=== PATIENT | female | born 1985 | race Caucasian/White ===

== ENCOUNTER 2016-12-09 09:33 | Emergency (ER) | payer MEDICAID, OTHER ==
[2016-12-09 11:07] LABS: Basophils % (Auto) 0.6 % (0.0-1.8); Eosinophils % (Auto) 0.9 % (0.0-4.3); Hematocrit 39.3 % (30.3-42.9); Hemoglobin 13.2 gm/dl (10.1-14.3); Mean Corpuscular HGB Conc 34 % (30-34); Mean Corpuscular Hemoglobin 29 pg (28-32); Mean Corpuscular Volume 86 fl (79-97); Platelet Count 225 K/mm3 (140-440); Red Blood Count 4.55 M/mm3 (3.65-5.03); Red Cell Distribution Width 14.5 % (13.2-15.2); White Blood Count 9.8 K/mm3 (4.5-11.0)
--- NOTE | 2016-12-09 12:34 | Ultrasound Report ---
ULTRASOUND OB LESS THAN 14 WEEKS ULTRASOUND OB TRANSVAGINAL HISTORY: Vaginal bleeding during , beta hCG level is 372. TECHNIQUE: Transabdominal and transvaginal ultrasound with color and spectral doppler interrogation. No comparison. The uterus measures 8.4 x 4.6 x 6.1 cm. No uterine mass is detected. The endometrial stripe measures 6.2 mm. No intrauterine is visualized. No heart tones detected. The right ovary measures 2.6 x 1.3 x 1.5 cm. No focal abnormality. The left ovary measures 3.3 x 1.8 x 2.3 cm. No focal abnormality. Small free pelvic fluid is noted in the cul-de-sac which is probably physiologic. IMPRESSION: No intrauterine is visualized at this time. This could represent a normal very early , spontaneous or possibly a nonvisualized ectopic . Close interval followup is recommended.
[2016-12-09 15:20] LABS: Bilirubin,Urine NEG (Negative); Blood,Urine MOD (Negative); Ketones,Urine TR mg/dL (Negative); Leukocyte Esterase,Urine TR (Negative); Mucus,Urine FEW /HPF; Nitrite,Urine NEG (Negative); Protein,Urine <15 mg/dL mg/dL (Negative); Urobilinogen,Urine < 2.0 mg/dL (<2.0)
--- NOTE | 2016-12-09 15:32 | Emergency Department Report ---
ED HPI - General Chief complaint: Vaginal Bleeding Stated complaint: 5 WEEKS , VAGINAL BLEEDING AND CRAMPING Time Seen by Provider: 12/09/16 15:29 Source: patient, RN notes reviewed Mode of arrival: Ambulatory Limitations: Language Barrier (this provider is conversational in Telugu) - History of Present Illness Initial comments: This is a 31-year-old female who is previously unknown to this provider. She is 2, para 1. Last menstruation is October 27. Does not have a local taxicab driver. Presents to the ER with lower abdominal cramping, vaginal bleeding. Symptoms started this morning. They are constant. They do not have exacerbating or relieving factors. Denies irritative and obstructive urinary symptoms, no care as of now. No other complaints. MD Complaint: abdominal pain, vaginal bleeding -: Gradual Location: pelvis Severity: mild Quality: cramping Consistency: intermittent Improves with: none Worsens with: none Associated symptoms: vaginal bleeding, abdominal pain. denies: nausea/vomiting , vaginal discharge, dysuria, headache, vision changes, malaise, dysparuenia, shortness of breath, syncope, weakness Vaginal bleeding: light :: Yes Pre- care: none - Related Data Previous Rx's Medication Instructions Recorded Last Taken Type HYDROcodone/APAP 5-325 [[place] 1 each PO Q6H PRN #30 tablet 06/12/14 Unknown Rx 5-325 mg TAB] Ibuprofen [Motrin 600 MG tab] 600 mg PO Q6H PRN #30 tablet 06/12/14 Unknown Rx Vit-Fe Fumar-FA [ 1 each PO QDAY #30 tablet 06/12/14 Unknown Rx Vitamin] Allergies Allergy/AdvReac Type Severity Reaction Status Date / Time No Known Allergies Allergy Verified 06/11/14 10:13 ED Review of Systems ROS: Stated complaint: 5 WEEKS , VAGINAL BLEEDING AND CRAMPING Other details as noted in HPI Constitutional: denies: fever Eyes: denies: eye discharge ENT: denies: epistaxis Respiratory: denies: cough Cardiovascular: denies: chest pain Gastrointestinal: denies: nausea, vomiting Genitourinary: abnormal menses. denies: dysuria Musculoskeletal: back pain Skin: denies: lesions Neurological: weakness Psychiatric: anxiety ED Past Medical Hx - Past Medical History Previous Medical History?: Yes Hx Hypertension: No Hx Congestive Heart Failure: No Hx Diabetes: No Hx Deep Vein Thrombosis: No Hx Renal Disease: No Hx Sickle Cell Disease: No Hx Seizures: No Hx Asthma: No Hx COPD: No Hx HIV: No Additional medical history: vaginal delivery x 1 - Surgical History Past Surgical History?: No - Social History Smoking Status: Never Smoker Substance Use Type: Prescribed - Medications Home Medications: Home Medications Medication Instructions Recorded Confirmed Last Taken Type HYDROcodone/APAP 5-325 [[place] 1 each PO Q6H PRN #30 tablet 06/12/14 Unknown Rx 5-325 mg TAB] Ibuprofen [Motrin 600 MG tab] 600 mg PO Q6H PRN #30 tablet 06/12/14 Unknown Rx Vit-Fe Fumar-FA [ 1 each PO QDAY #30 tablet 06/12/14 Unknown Rx Vitamin] ED Physical Exam - General Limitations: Language Barrier General appearance: alert, in no apparent distress - Head Head exam: Present: atraumatic, normocephalic - Eye Eye exam: Present: normal appearance, EOMI. Absent: nystagmus - ENT ENT exam: Present: normal exam, normal orophraynx, mucous membranes moist, normal external ear exam - Neck Neck exam: Present: normal inspection, full ROM. Absent: tenderness, meningismus - Respiratory Respiratory exam: Present: normal lung sounds bilaterally. Absent: respiratory distress, wheezes, rales, rhonchi, stridor, chest wall tenderness, accessory muscle use, decreased breath sounds, prolonged expiratory - Cardiovascular Cardiovascular Exam: Present: regular rate, normal rhythm, normal heart sounds. Absent: bradycardia, tachycardia, irregular rhythm, systolic murmur, diastolic murmur, rubs, gallop - GI/Abdominal GI/Abdominal exam: Present: soft, normal bowel sounds. Absent: distended, tenderness, guarding, rebound, rigid - External exam: Present: normal external exam Speculum exam: Present: normal speculum exam, vaginal bleeding Bi-manual exam: Present: normal bi-manual exam, other (escorted by JARROD Perez). Absent: cervical motion tendernes, adnexal tenderness, adnexal mass, uterine enlargement, uterine tenderness - Extremities Exam Extremities exam: Present: normal inspection, full ROM, normal capillary refill. Absent: tenderness, calf tenderness - Back Exam Back exam: Present: normal inspection, full ROM. Absent: tenderness, CVA tenderness (R), CVA tenderness (L), muscle spasm, paraspinal tenderness, vertebral tenderness - Neurological Exam Neurological exam: Present: alert, oriented X3, normal gait, other (Extraocular movements intact. Tongue midline. No facial droop. Facial sensation intact to light touch in the V1, V2, V3 distribution bilaterally. 5 and 5 strength in 4 extremities.. Sensation is intact to light touch in 4 extremities.). Absent : motor sensory deficit - Psychiatric Psychiatric exam: Present: anxious - Skin Skin exam: Present: warm, dry, intact, normal color. Absent: rash ED Course Vital Signs 12/09/16 12/09/16 12/09/16 10:13 10:20 15:31 Temperature 98.9 F 98.2 F Pulse Rate 70 73 61 Respiratory 18 16 Rate Blood Pressure 111/56 111/56 106/54 O2 Sat by Pulse 100 100 100 Oximetry ED Medical Decision Making - Lab Data Result diagrams: 12/09/16 10:20 Vital Signs 12/09/16 10:13 Temperature 98.9 F Pulse Rate 70 Respiratory 18 Rate Blood Pressure 111/56 O2 Sat by Pulse 100 Oximetry Lab Results 12/09/16 12/09/16 12/09/16 Range/Units 10:20 10:20 10:20 WBC 9.8 (4.5-11.0) K/mm3 RBC 4.55 (3.65-5.03) M/mm3 Hgb 13.2 (10.1-14.3) gm/dl Hct 39.3 (30.3-42.9) % MCV 86 (79-97) fl MCH 29 (28-32) pg MCHC 34 (30-34) % RDW 14.5 (13.2-15.2) % Plt Count 225 (140-440) K/mm3 Lymph % (Auto) 18.2 (13.4-35.0) % [place] % (Auto) 8.2 H (0.0-7.3) % Eos % (Auto) 0.9 (0.0-4.3) % Baso % (Auto) 0.6 (0.0-1.8) % Lymph # 1.8 (1.2-5.4) K/mm3 [place] # 0.8 (0.0-0.8) K/mm3 Eos # 0.1 (0.0-0.4) K/mm3 Baso # 0.1 (0.0-0.1) K/mm3 Seg Neutrophils % 72.1 H (40.0-70.0) % Seg Neutrophils # 7.1 (1.8-7.7) K/mm3 HCG, Quant 371.8 H (0-4) mIU/mL Urine Color (Yellow) Urine Turbidity (Clear) Urine pH (5.0-7.0) Ur Specific [place] (1.003-1.030) Urine Protein (Negative) mg/dL Urine Glucose (UA) (Negative) mg/dL Urine Ketones (Negative) mg/dL Urine Blood (Negative) Urine Nitrite (Negative) Urine Bilirubin (Negative) Urine Urobilinogen (<2.0) mg/dL Ur Leukocyte Esterase (Negative) Urine WBC (Auto) (0.0-6.0) /HPF Urine RBC (Auto) (0.0-6.0) /HPF U Epithel Cells (Auto) (0-13.0) /HPF Urine Mucus /HPF Blood Type A POSITIVE Antibody Screen TNR CARIDAD Antibody Screen Negative 12/09/16 Range/Units Unknown WBC (4.5-11.0) K/mm3 RBC (3.65-5.03) M/mm3 Hgb (10.1-14.3) gm/dl Hct (30.3-42.9) % MCV (79-97) fl MCH (28-32) pg MCHC (30-34) % RDW (13.2-15.2) % Plt Count (140-440) K/mm3 Lymph % (Auto) (13.4-35.0) % [place] % (Auto) (0.0-7.3) % Eos % (Auto) (0.0-4.3) % Baso % (Auto) (0.0-1.8) % Lymph # (1.2-5.4) K/mm3 [place] # (0.0-0.8) K/mm3 Eos # (0.0-0.4) K/mm3 Baso # (0.0-0.1) K/mm3 Seg Neutrophils % (40.0-70.0) % Seg Neutrophils # (1.8-7.7) K/mm3 HCG, Quant (0-4) mIU/mL Urine Color Yellow (Yellow) Urine Turbidity Clear (Clear) Urine pH 7.0 (5.0-7.0) Ur Specific [place] 1.010 (1.003-1.030) Urine Protein <15 mg/dl (Negative) mg/dL Urine Glucose (UA) Neg (Negative) mg/dL Urine Ketones Tr (Negative) mg/dL Urine Blood Mod (Negative) Urine Nitrite Neg (Negative) Urine Bilirubin Neg (Negative) Urine Urobilinogen < 2.0 (<2.0) mg/dL Ur Leukocyte Esterase Tr (Negative) Urine WBC (Auto) 2.0 (0.0-6.0) /HPF Urine RBC (Auto) 53.0 (0.0-6.0) /HPF U Epithel Cells (Auto) < 1.0 (0-13.0) /HPF Urine Mucus Few /HPF Blood Type Antibody Screen CARIDAD Antibody Screen - Radiology Data Radiology results: report reviewed, image reviewed Obstetrics ultrasound Demonstrates no acute uterine . May represent early , spontaneous or nonvisualized ectopic . - Medical Decision Making Differential diagnosis: Miscarriage, ectopic , early intrauterine Assessment and plan: 31-year-old female with one day of lower abdominal cramping and vaginal bleeding. The patient is afebrile, with reassuring vital signs, quantitative hCGs and 300s, has a benign gynecologic exam, has a benign abdominal examination. Extensive discussion had with patient and family. Patient instructed to return in 48 hours for repeat physical exam and blood tests. Understands to rest, avoid heavy lifting, avoid strenuous physical activity, and to not engage in sexual intimacy. Extensive discussions were relayed to the patient in czech and jamaican. Critical care attestation.: If time is entered above; I have spent that time in minutes in the direct care of this critically ill patient, excluding procedure time. ED Disposition Clinical Impression: Miscarriage Disposition: DC-01 TO HOME OR SELFCARE Is pt being admited?: No Does the pt Need Aspirin: No Condition: Stable Instructions: Threatened Miscarriage (ED) Additional Instructions: Rest and avoid heavy lifting. Avoid strenuous physical activity. Do not engage in sex or heavy lifting. Return to the ER in 2 days for repeat quantitative hCG/ blood test. Right now, based on her history, ultrasound, and laboratory studies, possibilities include early with a possible threatened miscarriage, demise/termination , or ectopic , which is considered outside the uterus. Right now, it is too early to tell which of these possibilities is the definitive diagnosis. Therefore, it is very important to return in 2 days for repeat blood tests and physical examination. Not following up as recommended may result in an undiagnosed ectopic , which can cause , disability, paralysis, loss of quality of life. Return to the ER right away with new pain, worsened pain, migration of pain, bleeding more than 2 pads soaked per hour, lightheadedness, loss of consciousness and passing out. The miscarriage is defined when a terminates or dies , typically within the first trimester. Descansar y evitar el levantamiento de pesas. Evite la actividad fsica extenuante. No se involucre en el sexo o el levantamiento de pesas. Regrese a la marcia de emergencia en 2 vizcarra para repetir el hCG cuantitativo / anlisis de david del embarazo. En german momento, basndose en cee historia, ultrasonido y estudios de laboratorio, las posibilidades incluyen el embarazo precoz con un posible aborto espontneo amenazado, un embarazo por fallecimiento / terminaci n o un embarazo ectpico, que se considera un embarazo fuera del tero. Ahora mismo, es demasiado pronto para saber cul de estas posibilidades es el diagn stico definitivo. Por lo tanto, es muy importante regresar en 2 vizcarra para repetir las pruebas de david y el examen fsico. No seguir lo recomendado puede resultar en un embarazo ectpico no diagnosticado, que puede causar muerte , discapacidad, parlisis, prdida de la calidad de obdulia. Vuelva al ER de inmediato con dolor nuevo, dolor agravado, migracin de dolor, sangrado ms de 2 almohadillas empapadas por hora, aturdimiento, prdida de conciencia y desmayo. El aborto espontneo se define cuando un embarazo termina o muere, tpicamente dentro del primer trimestre. Referrals: PRIMARY CARE, [Primary Care Provider] - 3-5 Days [facility] [Provider Group] - 3-5 Days [facility] [Provider Group] - 3-5 Days [facility] [Provider Group] - 3-5 Days
[2016-12-09 15:34] VITALS: BP 106/54
== END 2016-12-09 16:23 | disposition home or self-care (01) ==
LOC: ED 09:33
DX: O03.9 Complete or unspecified spontaneous abortion without complication (principal); Z3A.01 Less than 8 weeks gestation of pregnancy
CPT/HCPCS: 36415; 76801; 76817; 81001; 84702; 85025; 86850; 86900; 86901

== ENCOUNTER 2016-12-11 16:44 | Emergency (ER) | payer OTHER ==
--- NOTE | 2016-12-11 20:02 | Emergency Department Report ---
ED Female HPI - General Chief complaint: Recheck/Abnormal Lab/Rx Stated complaint: SPONTANEUS ABORT BW Time Seen by Provider: 12/11/16 19:35 Source: patient Mode of arrival: Ambulatory Limitations: No Limitations - History of Present Illness Initial comments: 31-year-old female presents to the ER complaints of bleeding per vaginam.Pt was previously seen seen here with on 12/09/16. Pt is a G2, P1001. Her LMP was / Pt is currently having lower abdominal cramps and PV bleeding. Pt is A positive. HCG quantitative is down to 52 today. Pt is having an incomplete Complaint: vaginal bleeding -: Gradual, days(s) (4) Location: other (pt has lower abdominal cramps) Severity: moderate Severity scale (0 -10): 6 Quality: cramping Improves with: none Worsens with: none Are you Now?: Yes Last Menstrual Period: 10/27/16 EDC: 08/03/17 Associated Symptoms: vaginal bleeding, abdominal pain. denies: vaginal discharge, nausea/vomiting, fever/chills, dysuria, hematuria, rash, shortness of breath, syncope, weakness - Related Data Sexually active: Yes : 2 Para: 1 A: 0 Previous Rx's Medication Instructions Recorded Last Taken Type HYDROcodone/APAP 5-325 [[place] 1 each PO Q6H PRN #30 tablet 06/12/14 Unknown Rx 5-325 mg TAB] Ibuprofen [Motrin 600 MG tab] 600 mg PO Q6H PRN #30 tablet 06/12/14 Unknown Rx Vit-Fe Fumar-FA [ 1 each PO QDAY #30 tablet 06/12/14 Unknown Rx Vitamin] Allergies Allergy/AdvReac Type Severity Reaction Status Date / Time No Known Allergies Allergy Verified 12/11/16 18:09 ED Review of Systems ROS: Stated complaint: SPONTANEUS ABORT BW Other details as noted in HPI Comment: All other systems reviewed and negative Constitutional: weakness. denies: chills, diaphoresis, fever, malaise Eyes: denies: eye pain, eye discharge, vision change ENT: denies: throat pain, dental pain, hearing loss Respiratory: denies: cough, orthopnea, shortness of breath, SOB with exertion Cardiovascular: denies: chest pain, palpitations, edema, syncope, paroxysmal nocturnal dyspnea Endocrine: no symptoms reported Gastrointestinal: denies: nausea, vomiting, diarrhea, constipation, hematemesis Genitourinary: as per HPI Musculoskeletal: denies: back pain, joint swelling, arthralgia Skin: denies: lesions, change in color, change in hair/nails Neurological: weakness. denies: headache, numbness, paresthesias ED Past Medical Hx - Past Medical History Previous Medical History?: Yes Hx Hypertension: No Hx Congestive Heart Failure: No Hx Diabetes: No Hx Deep Vein Thrombosis: No Hx Renal Disease: No Hx Sickle Cell Disease: No Hx Seizures: No Hx Asthma: No Hx COPD: No Hx HIV: No Additional medical history: vaginal delivery x 1 - Surgical History Past Surgical History?: No - Social History Smoking Status: Never Smoker Substance Use Type: None - Medications Home Medications: Home Medications Medication Instructions Recorded Confirmed Last Taken Type HYDROcodone/APAP 5-325 [[place] 1 each PO Q6H PRN #30 tablet 06/12/14 Unknown Rx 5-325 mg TAB] Ibuprofen [Motrin 600 MG tab] 600 mg PO Q6H PRN #30 tablet 06/12/14 Unknown Rx Vit-Fe Fumar-FA [ 1 each PO QDAY #30 tablet 06/12/14 Unknown Rx Vitamin] ED Physical Exam - General Limitations: No Limitations General appearance: alert, in no apparent distress - Head Head exam: Present: atraumatic, normocephalic, normal inspection - Eye Eye exam: Present: normal appearance, PERRL, EOMI. Absent: scleral icterus, conjunctival injection, nystagmus Pupils: Present: normal accommodation - ENT ENT exam: Present: normal exam, normal orophraynx, mucous membranes moist, normal external ear exam. Absent: TM's normal bilaterally - Neck Neck exam: Present: normal inspection, full ROM. Absent: tenderness, meningismus, lymphadenopathy - Respiratory Respiratory exam: Present: normal lung sounds bilaterally. Absent: respiratory distress, wheezes, rales, rhonchi - Cardiovascular Cardiovascular Exam: Present: bradycardia, normal heart sounds. Absent: systolic murmur, diastolic murmur - GI/Abdominal GI/Abdominal exam: Present: soft, tenderness (mild suprapubic region), normal bowel sounds. Absent: rebound, hyperactive bowel sounds, hypoactive bowel sounds - Rectal Rectal exam: Present: deferred - Extremities Exam Extremities exam: Present: normal inspection, full ROM, normal capillary refill - Back Exam Back exam: Present: normal inspection, full ROM. Absent: CVA tenderness (L), muscle spasm, paraspinal tenderness - Neurological Exam Neurological exam: Present: alert, oriented X3, CN II-XII intact, normal gait ED Course Vital Signs 12/11/16 18:10 Temperature 98.2 F Pulse Rate 57 L Respiratory 16 Rate Blood Pressure 120/71 O2 Sat by Pulse 100 Oximetry Critical Care Time: No Critical care attestation.: If time is entered above; I have spent that time in minutes in the direct care of this critically ill patient, excluding procedure time. ED Disposition Clinical Impression: Incomplete Disposition: - TO HOME OR SELFCARE Is pt being admited?: No Does the pt Need Aspirin: No Condition: Stable Instructions: Spontaneous Miscarriage (ED), Dilation and Curettage (ED) Referrals: PRIMARY CAREMD [Primary Care Provider] - 3-5 Days JADE BARFIELD MD [Staff Physician] - 3-5 Days (cALL OFFICE FOR AN APPOINTMENT) Time of Disposition: 20:07
[2016-12-11 20:15] VITALS: BP 112/67
== END 2016-12-11 20:15 | disposition home or self-care (01) ==
LOC: ED 16:44
DX: O03.4 Incomplete spontaneous abortion without complication (principal)
CPT/HCPCS: 36415; 84702; 99283